=== PATIENT | female | born 1945 | race Caucasian/White ===

== ENCOUNTER → 2018-12-16 | Outpatient (CLI) | payer OTHER | LOC: M.RAD 14:14 | DX: M47.812 Spondylosis without myelopathy or radiculopathy, cervical region (principal); M43.22 Fusion of spine, cervical region; M43.12 Spondylolisthesis, cervical region ==

== ENCOUNTER 2020-04-09 07:29 | Emergency (ER) | payer OTHER ==
[~2020-04-09] VITALS: Ht 160 cm; Wt 88.5 kg
[2020-04-09] MEDS ORDERED: GALZIN50 MG PO (07:43)
[2020-04-09] MEDS ORDERED: SIMVASTATIN80 MG PO (07:43)
[2020-04-09] MEDS ORDERED: OMEPRAZOLE 20 M20 M1 PO (07:43)
[2020-04-09] MEDS ORDERED: TOPROL XL25 MG PO (07:43)
[2020-04-09] MEDS ORDERED: LISINOPRIL-HCT1 EAC1 PO (07:43)
[2020-04-09] MEDS ORDERED: MAGNESIUM250 M1 PO (07:43)
[2020-04-09] MEDS ORDERED: GLUCOSAMINE1000 MG PO (07:44)
[2020-04-09] MEDS ORDERED: AMITRIPTYLINE H50 M3 PO (07:44)
[2020-04-09] MEDS ORDERED: DIPHENHIST50 MG PO (08:12)
[2020-04-09] MEDS ORDERED: PREDNISONE50 MG PO (08:12)
[2020-04-09 08:52] VITALS: BP 160/90
== END 2020-04-09 08:52 | disposition home or self-care (01) ==
LOC: M.ERS 07:29
DX: L27.1 Localized skin eruption due to drugs and medicaments taken internally (principal); T39.395A Adverse effect of other nonsteroidal anti-inflammatory drugs [NSAID], initial encounter; I10 Essential (primary) hypertension; E78.5 Hyperlipidemia, unspecified; Z79.899 Other long term (current) drug therapy; Z88.1 Allergy status to other antibiotic agents; Y92.89 Other specified places as the place of occurrence of the external cause

== ENCOUNTER 2020-05-10 08:23 | Emergency (ER) | payer OTHER ==
[~2020-05-10] VITALS: Ht 160 cm; Wt 90.7 kg
[~2020-05-10 08:23] MED LIST: AMITRIPTYLINE H50 M3 PO; DIPHENHIST50 MG PO; GALZIN50 MG PO; GLUCOSAMINE1000 MG PO; LISINOPRIL-HCT1 EAC1 PO; MAGNESIUM250 M1 PO; OMEPRAZOLE 20 M20 M1 PO; PREDNISONE50 MG PO; SIMVASTATIN80 MG PO; TOPROL XL25 MG PO
[2020-05-10 09:04] LABS: ABSOLUTE EOSINOPHILS 0.2 thou/uL (0.0-0.7); ABSOLUTE LYMPHOCYTES 1.3 thou/uL (0.8-5.3); ABSOLUTE MONOCYTES 0.9 thou/uL (0.0-1.2); ABSOLUTE NEUTROPHILS 4.8 thou/uL (1.6-8.1); BASOPHILS 0.5 %; EOSINOPHILS 2.6 %; HEMATOCRIT 41.6 % (37.0-47.0); HEMOGLOBIN 14.4 gm/dL (12.0-15.0); MCH 30.7 pg (26.0-34.0); MCHC 34.5 g/dL (28.0-37.0); MCV 88.9 fL (80.0-100.0); MONOCYTES 12.4 %; MPV 7.8 fl. (7.2-11.1); NUCLEATED RBCS 0 /100WBC; PLATELET COUNT* 205 thou/uL (150-400); POLYS 66.5 %; RBC 4.68 mil/uL (4.20-5.00); RDW-CV 13.2 % (10.5-14.5); WBC 7.2 thou/uL (4.0-11.0)
[2020-05-10 09:15] LABS: CALCIUM 8.5 mg/dL (8.5-10.1); POTASSIUM 3.8 mmol/L (3.5-5.1)
[2020-05-10 09:19] LABS: ALBUMIN 3.8 g/dL (3.4-5.0); TOTAL BILIRUBIN 0.8 mg/dL (<0.1-1.0); TOTAL PROTEIN 7.2 g/dL (6.4-8.2)
[2020-05-10] MEDS ORDERED: ZOFRAN ODT4 MG PO (09:19)
[2020-05-10 09:40] VITALS: BP 153/54
== END 2020-05-10 09:41 | disposition home or self-care (01) ==
LOC: M.ERS 08:23
PROVIDERS: Emergency Medicine
DX: A08.4 Viral intestinal infection, unspecified (principal); Z20.828 Contact with and (suspected) exposure to other viral communicable diseases; I10 Essential (primary) hypertension; E78.5 Hyperlipidemia, unspecified; Z79.899 Other long term (current) drug therapy; Z88.1 Allergy status to other antibiotic agents; Z88.8 Allergy status to other drugs, medicaments and biological substances